=== PATIENT | female | born 1945 | race Caucasian/White ===

== ENCOUNTER 2019-09-13 10:25 | Emergency (ER) | payer MEDICARE, BC ==
[~2019-09-13] VITALS: Ht 162.6 cm; Wt 65.3 kg
[2019-09-13] MEDS ORDERED: FISH OIL 1,0001 EAC9 PO (10:34)
[2019-09-13] MEDS ORDERED: CALCIUM500 MG PO (10:34)
[2019-09-13] MEDS ORDERED: NORCO 5-325 TA1 EAC2 PO (12:09)
[2019-09-13 12:58] VITALS: BP 147/78
[2019-09-26] MEDS ORDERED: ECOTRIN325 MG PO (14:11)
[2019-09-26] MEDS ORDERED: LORCET 5-325 M1 EACH PO (14:14)
== END 2019-09-13 12:58 | disposition home or self-care (01) ==
LOC: M.ERS 10:25
DX: S82.842A Displaced bimalleolar fracture of left lower leg, initial encounter for closed fracture (principal); W01.0XXA Fall on same level from slipping, tripping and stumbling without subsequent striking against object, initial encounter; Y93.89 Activity, other specified; Y92.89 Other specified places as the place of occurrence of the external cause; Y99.8 Other external cause status

== ENCOUNTER → 2019-09-22 | Outpatient (CLI) | payer MEDICARE, BC ==
[~2019-09-22] MED LIST: CALCIUM500 MG PO; ECOTRIN325 MG PO; FISH OIL 1,0001 EAC9 PO; LORCET 5-325 M1 EACH PO; NORCO 5-325 TA1 EAC2 PO
== END ==
LOC: M.LAB 14:08
PROVIDERS: ATTEND Orthopaedic Surgery
DX: Z01.812 Encounter for preprocedural laboratory examination (principal); Z11.59 Encounter for screening for other viral diseases

== ENCOUNTER → 2019-09-26 | Day surgery (SDC) | payer MEDICARE, BC ==
--- NOTE | ~2019-09-26 | OP ---
[address] [address] OPERATIVE REPORT Name: ELLY SMALLWOOD Room: [facility]#: [id number] Admission: 09/26/19 Attend Phys: Yasmine Raman DO Discharge: Date of : 47 Report #: [id number] THIS REPORT FOR: //name// cc: Ronaldo Melendrez Gregory DO THIS REPORT FOR: //name// CC: Yasmine Melendrez DATE OF SERVICE: 09/26/2019 PREOPERATIVE DIAGNOSIS: Left trimalleolar ankle fracture dislocation. POSTOPERATIVE DIAGNOSIS: Left trimalleolar ankle fracture dislocation. PROCEDURES: 1. ORIF, left lateral malleolus. 2. ORIF, left medial malleolus. 3. ORIF, left ankle syndesmosis. 4. Intraoperative physician-guided fluoroscopy less than 1 hour. SURGEON: Yasmine Raman DO RAMP AGENT: Ann-Marie Mohr DO SECOND TRIM DIE MAKER: Thee Davey DO ANESTHESIA: General and regional block by Anesthesia. ESTIMATED BLOOD LOSS: 25 mL. SPECIMENS: None. DRAINS: None. COMPLICATIONS: None. CONDITION: The patient is stable. DISPOSITION: PACU to home. ANTIBIOTICS: One gram Ancef IV preoperatively. TOURNIQUET: Approximately 60 minutes at [address] [address] OPERATIVE REPORT Name: ELLY SMALLWOOD Room: [facility]#: [id number] Admission: 09/26/19 Attend Phys: Yasmine Raman DO Discharge: Date of : 47 Report #: [id number] IMPLANTS: Arthrex distal fibular locking plate and appropriate screws, 4.0 mm cannulated screws x 2 and syndesmosis TightRope. INDICATIONS FOR PROCEDURE: The patient is a very pleasant 74-year-old female who sustained a fall while mowing the grass approximately 2 weeks ago. She sustained a left trimalleolar ankle fracture dislocation. She was initially seen at [facility]. Closed reduction was performed. She was placed into a splint. She followed up in the outpatient setting. X-rays showed a trimalleolar ankle fracture with satisfactory provisional reduction. Her skin was noted to be amenable to surgical fixation at this time; therefore, I did recommend open reduction and internal fixation of left ankle. Benefits, risks, complications, and alternatives of this procedure were discussed with the patient in detail. These include but are not limited to bleeding, surgical site infection, neurovascular compromise, malunion, nonunion, hardware failure, continued pain, need for further surgery, DVT, PE as well as the inherent risks of anesthesia. The patient understands these risks and is agreeable to proceed. Consent was signed in the preoperative holding area and on the chart at the time of surgery, operative site was marked. DESCRIPTION OF PROCEDURE: The patient was brought to the operating room and placed supine on the operating table. She was administered general anesthetic. A well-padded tourniquet was placed on proximal portion of the left thigh. Left lower extremity was then sterilely prepped with chlorhexidine scrub, alcohol and then ChloraPrep. This was allowed to dry for 3 minutes. She was then draped freely in the usual fashion. A timeout was performed confirming correct patient, site, procedure. Surgical site markings were identified and all in the room agreed. The procedure began with exsanguination of the left lower extremity with an Esmarch and inflation of tourniquet to 250 mmHg. Next, a standard lateral incision was made directly overlying the distal fibula. This was carried through skin and subcutaneous tissues. Care was taken to protect the superficial peroneal nerve throughout the entirety of the procedure. Dissection was carried down to the periosteum. Periosteum was then split. Fracture site was identified. She was noted to have a short oblique fracture of the distal fibula with shortening. We attempted provisional reduction. We were unable to gain adequate length with reduction clamps. Her bone was also noted to be quite osteopenic; therefore, decision was made to fixate the plate distally and performed a push-pull technique. A distal fibular locking plate of appropriate size was chosen and held in place with BB tacks. Next four of the holes in the distal aspect of the plate were drilled, measured and filled with appropriate length 2.7 mm locking screws. We then drilled outside of the plate proximal to it on the shaft of the fibula. A 3.5 mm nonlocking screw was placed and then a laminar baked and graphite inspector was used to perform push-pull technique. We were able to gain adequate length to the fibula and then three 3.5 mm screws were placed proximal to the fracture site giving 6 cortices of fixation. We then turned our attention to the medial side. This was noted to be well reduced. She had had some skin medially due to her dislocation previously; therefore, [place] [address] OPERATIVE REPORT Name: ELLY SMALLWOOD Room: [facility]#: [id number] Admission: 09/26/19 Attend Phys: Yasmine Raman, DO Discharge: Date of : 47 Report #: [id number] decision was made to fixate this percutaneously. Two K-wires from the 4.0 mm cannulated screw system were utilized. A small skin incision was made directly overlying these, these were then measured, overdrilled and two 4.0 mm cannulated screws were placed across the fracture site. K-wires were removed. At this time, intraoperative stress view was taken and showed widening at the tib-fib overlap. Therefore, decision was made to fixate the syndesmosis. Also, decision was made to fixate the syndesmosis due to her poor bone quality. We drilled with the TightRope drill bit across all 4 cortices and the TightRope was then placed parallel to the joint line while holding the ankle in neutral dorsiflexion and manual squeeze on the syndesmosis and then we decided to place one screw proximal to the TightRope drilling with the appropriate drill bit and then placing appropriate length screw across the syndesmosis. At this time, x-rays were taken, which confirmed appropriate fracture reduction, hardware placement and buddhist of a congruent ankle mortise. We then irrigated the wounds with normal saline. Deep tissues were closed with 0 Vicryl suture. Subcutaneous tissue was closed with 2-0 Vicryl suture and skin reapproximated with 3-0 nylon. Wounds were then dressed with Xeroform, 4 x 4s, ABD, soft roll and a well-padded posterior and U plaster splint was applied. Tourniquet was let down at approximately one hour. The patient tolerated the procedure well without complications, transferred to PACU in stable condition. All needle and sponge counts were correct x 2 and I was present throughout all pertinent decision making aspects of the case. By: [id number] Raman DO /nt
[2019-09-26 11:33] LABS: HEMOGLOBIN 15.1 gm/dL (12.0-15.0); MCH 32.1 pg (26.0-34.0); MCHC 34.4 g/dL (28.0-37.0); MCV 93.3 fL (80.0-100.0); MPV 8.2 fl. (7.2-11.1); RBC 4.71 mil/uL (4.20-5.00); RDW-CV 13.3 % (10.5-14.5); WBC 9.5 thou/uL (4.0-11.0)
[2019-09-26 11:37] LABS: CALCIUM 9.3 mg/dL (8.5-10.1); CREATININE 0.6 mg/dL (0.6-1.3); POTASSIUM 3.9 mmol/L (3.5-5.1)
--- NOTE | 2019-09-26 14:34 | EKG ---
[place] [address] ELECTROCARDIOGRAM REPORT Name: JOSE ALFREDO SMALLWOODRoseline Room: [facility]#: [id number] Admission: 09/26/19 Attend Phys: Yasmine Raman DO Discharge: Date of : 47 Date of Service: 09/26/19 1141 Report #: [id number] THIS REPORT FOR: //name// [facility] Test Date: 2019-09-26 Test Time: 11:41:45 Pat Name: ELLY SMALLWOOD Department: Room: Gender: Prime Minister: : 1945 Requested By: Yasmine Raman Order Number: [id number] Reading MD: Yakov Johnson Measurements Intervals [place] Rate: 75 P: 39 SC: 183 QRS: 57 QRSD: 129 T: 23 QT: 390 QTc: 436 Interpretive Statements Sinus rhythm Right bundle branch block No previous ECG available for comparison Electronically Signed On 09-26-2019 14:34:23 CDT by Yakov Johnson [email or web address] <ELECTRONICALLY SIGNED> By: Yakov Johnson MD, [facility] 09/26/19 1434 1141 114 Yakov Johnson MD, FACC /EPI
== END | disposition home or self-care (01) ==
LOC: M.SUR 05:10
PROVIDERS: ATTEND Orthopaedic Surgery
DX: S82.852A Displaced trimalleolar fracture of left lower leg, initial encounter for closed fracture (principal); M81.0 Age-related osteoporosis without current pathological fracture; Z90.710 Acquired absence of both cervix and uterus; Z79.899 Other long term (current) drug therapy; Z98.890 Other specified postprocedural states; X58.XXXA Exposure to other specified factors, initial encounter; Y93.89 Activity, other specified; Y92.89 Other specified places as the place of occurrence of the external cause; Y99.8 Other external cause status